=== PATIENT | female | born 1975 | race Hispanic/Latino ===

== ENCOUNTER 2022-09-30 08:39 | Outpatient (CLI) | payer OTHER, SELFPAY ==
--- NOTE | ~2022-09-30 | MM_ITS ---
EXAMINATION: MM screening andres BI w raquel HISTORY: Screening TECHNIQUE: Craniocaudal and mediolateral oblique 3-D tomosynthesis images were obtained and synthetic 2-D images were generated. CAD analysis was submitted and interpreted. COMPARISON: 10/26/2017 BREAST PARENCHYMAL COMPOSITION: The breasts are extremely dense, which lowers the sensitivity of mamm ography. FINDINGS: There is no evidence of suspicious mass, calcification, or architectural distortion to sugg est malignancy in either breast. There has been no suspicious interval change. IMPRESSION: 1. No mammographic evidence of malignancy. 2. Recommend routine screening mammography in one year. BI-RADS Category 1: Negative Reviewed, dictated and finalized at location A. 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
== END 2022-09-30 08:40 | disposition home or self-care (01) ==
LOC: ANHIMG 08:40
PROVIDERS: Visit Provider Registered Nurse
DX: Z12.31 Encounter for screening mammogram for malignant neoplasm of breast (principal)
CPT/HCPCS: 77063; 77067

== ENCOUNTER 2023-01-31 12:13 | Emergency (ER) | payer OTHER, SELFPAY ==
[2023-01-31 12:23] VITALS: BP 139/83; PULSE 80; RESP 14; TEMP 36.3; O2SAT 100
[2023-01-31 12:24] VITALS: BP 139/83; PULSE 80; RESP 14; TEMP 36.3; O2SAT 100
--- NOTE | 2023-01-31 12:32 | ED.ABDPAIN ---
HPI - Abdominal Pain General Chief Complaint: Abdominal Pain Stated Complaint: Constipation Time Seen by Provider: 01/31/23 12:27 Source: patient Mode of arrival: ambulatory Limitations: no limitations History of Present Illness HPI narrative: patient is a 47-year-old female that presents with constipation for 4 days. States she is trying to take team with no relief. Reports that her normal bowel movements are every other day. Denies any changes in diet, nausea, vomiting. Related Data Home Medications Medication Instructions Recorded Confirmed hydrochlorothiazide 12.5 mg tablet mg 01/31/23 lisinopril 5 mg tablet mg 01/31/23 Allergies Allergy/AdvReac Type Severity Reaction Status Date / Time No Known Allergies Allergy Verified 01/31/23 12:23 Review of Systems Review of Systems: All systems reviewed & are unremarkable except as noted in HPI and below Constitutional: Constitutional: Denies body ache(s), Denies fever(s), Denies headache(s), Denies malaise and Denies weakness Eyes: Eyes: Denies loss of vision ENT: Denies otalgia, Denies headache(s), Denies nasal discharge, Denies sinus pain and Denies sore throat Cardiovascular: Cardiovascular: Denies chest pain, Denies irregular heart rhythm and Denies dyspnea Respiratory: Respiratory: Denies dyspnea Gastrointestinal: Gastrointestinal: Denies abdominal pain, Denies melena, Denies hematochezia, Reports constipation, Denies diarrhea, Denies nausea and Denies vomiting Musculoskeletal: Musculoskeletal: Denies back pain, Denies myalgias and Denies arthralgias Integumentary/Breasts: Skin/Breast: Denies pruritus and Denies rash Neurologic: Denies headache(s), Denies loss of vision and Denies weakness Psychiatric: Psychiatric: Reports no additional psychiatric complaints PMFSH Comments At time of signature, agree with nursing past medical, surgical, social and family history. There is no relevant family history pertinent to the presenting complaint. Exam Const: General: cooperative, healthy appearing, comfortable, no acute distress and well nourished Nutritional Appearance: well nourished Orientation/consciousness: patient oriented x3 Limitations: no limitations HENMT: Head: normal to inspection, normocephalic and atraumatic Ears: external ears normal Face/Nose/Sinus: Normal external nose present, normal facial exam and face symmetric Face and sinus: normal facial exam and face symmetric Mouth: Yes lip normal Eyes: General: appearance normal, both eyes and all related structures Alignment and Position: alignment normal and position normal Periorbital: periorbital findings normal Eyelids: eyelids normal Pupils: Equal, round and reactive pupils present EOM: EOMs intact bilaterally Neck: Neck: normal visual inspection and full ROM Chest: Chest palpation & inspection: normal inspection of the chest Resp: Effort & Inspection: normal respiratory effort and able to speak in complete sentences Auscultation: clear to auscultation bilaterally Cardio: Rate: regular rate Rhythm: regular rhythm Heart sounds: S1 normal heart sound present and S2 normal heart sound present GI: Inspection: normal to inspection GI Palp: No abdominal tenderness, Yes Soft to palpation, No Guarding due to palpation present (GI) and No Rebound tenderness present Auscultation: Hyperactive bowel sounds present Skin: General skin exam: normal color and no rashes or lesions noted Neuro: General: patient oriented x3 and moves all extremities Cranial nerves: Yes Equal, round and reactive pupils present Speech: normal speech Gait exam (Neuro): Normal gait present Extrem: General: normal to inspection, full ROM and no edema Psych: Appearance: grossly normal and well kempt Mental Status: mental status grossly normal Speech and movement: Normal speech and movement present Affect: normal affect Attitude: cooperative Thought process: Normal thought process present Course Course Miley
== END 2023-01-31 12:44 | disposition home or self-care (01) ==
PROVIDERS: Emergency Provider Nurse Practitioner Family; PCP Registered Nurse
DX: K59.00 Constipation, unspecified (principal)
CPT/HCPCS: 99211; G0463

== ENCOUNTER 2024-08-08 08:26 | Outpatient (CLI) | payer OTHER, SELFPAY ==
--- NOTE | ~2024-08-08 | MM_ITS ---
EXAMINATION: MM screening andres BI w raquel HISTORY: Screening TECHNIQUE: Craniocaudal and mediolateral oblique 3-D tomosynthesis images were obtained and synthetic 2-D images were generated. CAD analysis was submitted and interpreted. COMPARISON: Comparison to multiple prior studies sequentially, with oldest reviewed study dated 10/16. BREAST PARENCHYMAL COMPOSITION: Dense: The breasts are extremely dense, which lowers the sensitivity of mammography. FINDINGS: There is no evidence of suspicious mass, calcification, or architectural distortion to sugg est malignancy in either breast. There has been no suspicious interval change. IMPRESSION: 1. No mammographic evidence of malignancy. 2. Recommend routine screening mammography in one year. BI-RADS Category 1: Negative Reviewed, dictated and finalized at location B.
== END 2024-08-08 08:27 | disposition home or self-care (01) ==
LOC: ANHIMG 08:28
PROVIDERS: PCP Registered Nurse; Visit Provider Registered Nurse
DX: Z12.31 Encounter for screening mammogram for malignant neoplasm of breast (principal)
CPT/HCPCS: 77063; 77067

== ENCOUNTER 2024-09-23 16:44 | Emergency (ER) | payer OTHER, SELFPAY ==
--- NOTE | ~2024-09-23 | XR_ITS ---
Exam: Abdomen 2V HISTORY: ABD distension COMPARISON: None. TECHNIQUE: Supine images of the abdomen and pelvis. FINDINGS: Significant fecal stasis throughout the colon. No air is identified within the rectum. IMPRESSION: Significant fecal stasis without air in the rectum, as detailed above. Cross-sectional imaging (IV contrast enhanced - no PO, CT examination of the abdomen and pelvis) is recommended for further evaluation. Reviewed, dictated and finalized at location A. 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 Cross-sectional imaging (IV contrast enhanced - no PO, CT examination of the a bdomen and pelvis) is recommended for further evaluation.
--- NOTE | 2024-09-23 16:54 | ED.ABDPAIN ---
HPI - Abdominal Pain General Chief Complaint: Abdominal Pain Stated Complaint: Abdominal Pain Time Seen by Provider: 09/23/24 16:55 Source: patient Mode of arrival: ambulatory Limitations: no limitations History of Present Illness HPI narrative: 49-year-old female presents with complaint of constipation and abdominal distention for 1 week. Denies abdominal pain. Has tried MiraLax 3 days in a row with no relief of constipation. No other complaints today. All systems reviewed and negative except as noted above. Related Data Home Medications Medication Instructions Recorded Confirmed hydrochlorothiazide 12.5 mg tablet 12.5 mg PO DAILY 01/31/23 09/23/24 lisinopril 5 mg tablet 5 mg PO DAILY 01/31/23 09/23/24 Allergies Allergy/AdvReac Type Severity Reaction Status Date / Time No Known Allergies Allergy Verified 09/23/24 16:54 Review of Systems Review of Systems: CONSTITUTIONAL: Denies fever, chills, or sweats. EYES: Denies visual changes, redness, or discharge. ENT: Denies rhinorrhea, congestion, sore throat, or otalgia. CARDIOVASCULAR: Denies chest pain, palpitations, or edema. RESPIRATORY: Denies cough or dyspnea. GASTROINTESTINAL: Reports abdominal pain. Denies nausea, vomiting, or diarrhea. GENITOURINARY: Denies dysuria or hematuria. SKIN: Denies rash or itching. MUSCULOSKELETAL: Denies back pain, joint pain, or myalgia. NEUROLOGIC: Denies headache, numbness, or weakness. PSYCHIATRIC: Denies anxiety or depression. All other systems reviewed are negative, except as documented in HPI. PMFSH Comments At time of signature, agree with nursing past medical, surgical, social and family history. There is no relevant family history pertinent to the presenting complaint. Exam Narrative: GENERAL: This is a well-nourished, well-developed patient, in no apparent distress. HEAD: normocephalic, atraumatic. EYES: PERRL. Sclera clear/white. Vision is grossly intact. EARS: External ears normal NOSE: External nose normal NECK: Neck supple, non-tender without lymphadenopathy, masses or thyromegaly. CARDIOVASCULAR: Regular rate and rhythm without murmurs, gallops, or rubs. RESPIRATORY: Clear to auscultation. Breath sounds equal bilaterally. No wheezes, rales, or rhonchi. GASTROINTESTINAL: Abdomen soft, non-tender, nondistended. Bowel sounds are active. No hepato-splenomegaly, or palpable masses. No guarding. SKIN: warm, Dry, intact with no suspicious lesions or rash, good texture and turgor. NEURO: awake, alert, and oriented to person, place and time. There were no obvious focal neurologic abnormalities. EXTREMITIES: No joint tenderness, effusion, or edema noted. Course Course Level of Care: Express Care Visit Vital Signs Vital signs: reviewed Transfer Transfered to: [place] Transportation: Other ( private car with her son) Transfer rationale: constipation for 1 week. KUB x-ray significant fecal stasis, recommend CT scan. Accepting physician: MD Arthur Hinojosa MDM - Abdominal Pain MDM Narrative Medical decision making narrative: Transferring patient to ER for CT scan of abdomen. KUB shows significant fecal stasis, recommend CT scan. Patient is aware of diagnosis, understands and agrees to treatment plan. Anticipatory guidance given. Patient agrees to follow-up as directed and is aware of reasons to seek care at the emergency department. Portions of this record may have been created with voice recognition software Differential Diagnosis Differential diagnosis: Likely abdominal pain, constipation and small bowel obstruction Imaging Data My impression: agree with radiologist Radiologist's impression: Exam: Abdomen 2V HISTORY: ABD distension COMPARISON: None. TECHNIQUE: Supine images of the abdomen and pelvis. FINDINGS: Significant fecal stasis throughout the colon. No air is identified within the rectum. IMPRESSION: Significant fecal stasis without air in the rectum, as detailed above. Cross-sectional imaging (IV contrast enhanced - no PO, CT examination of the abdomen and pelvis) is recommended for further evaluation. Discharge Plan Discharge Clinical Impression: Constipation Patient Disposition: Acute Care Hospital Condition: Stable Prescriptions: No Action lisinopril 5 mg tablet 5 mg PO DAILY hydrochlorothiazide 12.5 mg tablet 12.5 mg PO DAILY Follow-up/Referrals: Diego,IBIS Fair [Primary Care Provider] - Time of Disposition: 17:27
[2024-09-23 16:56] VITALS: BP 145/77; PULSE 83; RESP 20; TEMP 36.9; O2SAT 100
== END 2024-09-23 17:30 | disposition short-term general hospital (02) ==
PROVIDERS: Emergency Provider Nurse Practitioner Family; PCP Registered Nurse
DX: K59.00 Constipation, unspecified (principal); I10 Essential (primary) hypertension
CPT/HCPCS: 74018; 99212; G0463

== ENCOUNTER 2024-09-23 17:47 | Emergency (ER) | payer OTHER, SELFPAY ==
--- NOTE | ~2024-09-23 | CT_ITS ---
EXAMINATION: CT abdomen pelvis w con DATE: 09/23/2024 21:55 INDICATION: Abdominal pain. TECHNIQUE: Computed tomography (CT) of the abdomen and pelvis was performed with 100 mL Omnipaque 350 intravenous contrast. Automated exposure control and iterative reconstruction technique were employe d. The dose-length product was 388.49 mGy-cm. COMPARISON: None. FINDINGS: The visualized portions of lung bases demonstrate mild atelectasis. No pleural effusion. Th e heart size is normal. No pericardial effusion. The liver, gallbladder, spleen, pancreas, adrenal gl ands, and kidneys are normal. There are no dilated loops of bowel. The appendix is normal. There are no pathologically enlarged lymph nodes. There is no free intraperitoneal fluid. There is a 2.8 cm sub serosal fibroid. There is a 4.1 cm cyst in right ovary. There is mild thoracic and lumbar spondylosis . IMPRESSION: 1. 4.1 cm cyst in right ovary, likely a follicular cyst. 2. Uterine fibroid. Reviewed, dictated and finalized at location A. 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
[2024-09-23 17:51] VITALS: BP 175/91; PULSE 85; RESP 16; TEMP 36.3; O2SAT 100
--- NOTE | 2024-09-23 20:54 | ED.ABDPAIN ---
HPI - Abdominal Pain General Chief Complaint: Abdominal Pain Stated Complaint: abd distension Time Seen by Provider: 09/23/24 20:33 Source: patient Mode of arrival: ambulatory Limitations: language barrier History of Present Illness HPI narrative: This is a 49-year-old female, with history of hypertension, presents to the emergency department from urgent care complaining of constipation. Patient states her last bowel movement was in the past week. She states she has not been able to pass gas today. She denies significant abdominal pain. She states she was seen in urgent care with a KUB done and was referred here for CT of the abdomen. She has no other complaints at this time. Related Data Home Medications Medication Instructions Recorded Confirmed hydrochlorothiazide 12.5 mg tablet 12.5 mg PO DAILY 01/31/23 09/23/24 lisinopril 5 mg tablet 5 mg PO DAILY 01/31/23 09/23/24 Allergies Allergy/AdvReac Type Severity Reaction Status Date / Time No Known Allergies Allergy Verified 09/23/24 16:54 Review of Systems Review of Systems: All systems reviewed & are unremarkable except as noted in HPI and below PMFSH Past Medical History Medical History Hypertension Surgical History Surgical History No significant past surgical history Social History Social History Smoking status: Never smoker Alcohol intake: never Substance use: never Exam Narrative: GENERAL: Well-developed, well-nourished, and in no acute distress. HEAD: Normocephalic, atraumatic. EYES: PERRLA and EOMI. CHEST: Clear to auscultation. No respiratory distress. No wheezes rales or rhonchi HEART: Regular rate and rhythm. No murmur heard. Normal peripheral pulses. ABDOMEN: Soft, nontender, nondistended, normal active bowel sounds. EXTREMITIES: Normal range of motion. No edema. SKIN: Warm, dry, no rash. NEURO: Alert and oriented x3. No focal deficit. Moving all 4 limbs spontaneously PSYCH: Normal mood and affect. Course Course Emergency Course: 00:10 - CBC demonstrates chronic appearing microcytic anemia with hemoglobin of 9.3 but is otherwise unremarkable. Chemistries unremarkable. STAT Rad interpretation of CT abdomen pelvis demonstrates no acute findings. Simple right adnexal cyst, probably a dominant follicle. The patient was offered laxatives and enema here. She requested to be discharged and will attempt medications at home. Will discharge. I discussed the findings and recommendations with The patient. Discussed return and emergency precautions including signs/symptoms of acute abdomen and intractable vomiting. The patient voiced understanding and agreement with the plan. All questions answered to her satisfaction. Vital Signs Vital signs: Vital Signs Temperature 97.4 F L 09/23/24 17:51 Pulse Rate 85 09/23/24 17:51 Respiratory Rate 16 09/23/24 17:51 Blood Pressure 175/91 H 09/23/24 17:51 Pulse Oximetry 100 09/23/24 17:51 Oxygen Delivery Room Air 09/23/24 17:51 Temperature 98.7 F 09/23/24 23:31 Pulse Rate 71 09/23/24 23:31 Respiratory Rate 17 09/23/24 23:31 Blood Pressure 141/99 H 09/23/24 23:31 Pulse Oximetry 100 09/23/24 23:31 Oxygen Delivery Room Air 09/23/24 17:51 MDM - Abdominal Pain MDM Narrative Medical decision making narrative: Plan: Labs, imaging, reassess Differential Diagnosis Differential diagnosis: Likely constipation, diverticulitis, gastroenteritis, small bowel obstruction and other ( large bowel obstruction, metabolic abnormality, other) Lab Data 09/23/24 21:14 09/23/24 21:14 Labs: Lab Results 09/23/24 Range/Units 21:14 WBC 6.6 (4.5-10.0) K/mm3 RBC 4.24 (4.2-5.4) M/mm3 Hgb 9.3 L (12.0-15.0) g/dL Hct 30.5 L (37.0-47.0) % MCV 71.9 L (80-100) fl MCH 21.9 L (26-34) pg MCHC 30.5 L (32-36) g/dl RDW 15.9 H (11.5-14.5) % Plt Count 451 H (150-375) k/mm3 MPV 9.1 (7.4-10.4) fl Immature Gran % (Auto) 0.2 (0-0.5) % Neut % (Auto) 63.6 (45.5-73.1) % Lymph % (Auto) 27.1 (18.3-44.2) % [place] % (Auto) 6.2 (2.6-8.5) % Eos % (Auto) 2.0 (0-4.4) % Baso % (Auto) 0.9 (0.2-1.2) % Lymph # (Auto) 1.78 (0.9-3.2) K/mm3 [place] # (Auto) 0.4 (0.1-0.6) K/mm3 Eos # (Auto) 0.1 (0-0.3) K/mm3 Baso # (Auto) 0.1 (0.0-0.1) K/mm3 Abs Immat Gran (auto) 0.01 (0.00-0.031) K/mm3 Absolute Neuts (auto) 4.2 (1.3-6.7) K/mm3 Absolute Nucleated RBC 0.000 (0.0-0.012) K/mm3 Nucleated RBC % 0.0 (0.0-0.2) % Platelet Estimate Increased (Adequate) Hypochromasia 1+ Anisocytosis 1+ Microcytosis 1+ (NORMAL) Schistocytes None seen Sodium 138 (137-145) mmol/L Potassium 3.6 (3.4-5.0) mmol/L Chloride 106 (98-107) mmol/L Carbon Dioxide 22 (22-30) mmol/L Anion Gap 10 (4-12) mmol/L BUN 11 (7-17) mg/dL Creatinine 0.60 L (0.7-1.0) mg/dL Estim Creat Clear Calc 89 ml/min Estimated GFR > 60 (59 - ) Glucose 95 (65-110) mg/dL Calcium 9.4 (8.4-10.2) mg/dL Total Bilirubin 0.3 (0.2-1.3) mg/dL AST 26 (14-36) U/L ALT 14 (6-35) U/L Alkaline Phosphatase 54 (38-126) U/L Total Protein 9.0 H (6.3-8.2) g/dL Albumin 4.8 (3.5-5.1) g/dL Discharge Plan Discharge Clinical Impression: Constipation Qualifiers: Constipation type: unspecified constipation type Qualified Code(s): K59.00 - Constipation, unspecified Patient Disposition: Home, Self-Care Condition: Stable Instructions: Antibiotic Form, Constipation (ED) Additional Instructions: You were seen in the emergency department. Scan showed constipation but was not concerning for blockage of the bowel. Your labs showed a slightly decreased hemoglobin of 9 with changes consistent with iron deficiency. I recommend following up with your primary care doctor. If you develop Severe abdominal pain, persistent vomiting, or if you have other emergent concerns for life, limb, or eyesight, return to the emergency department. Patient Language: [place] Prescriptions: No Action lisinopril 5 mg tablet 5 mg PO DAILY hydrochlorothiazide 12.5 mg tablet 12.5 mg PO DAILY Follow-up/Referrals: Diego,IBIS Fair [Primary Care Provider] - 2 Weeks Time of Disposition: 00:45
[2024-09-23 21:15] VITALS: BP 160/86; PULSE 82; RESP 17; O2SAT 100
[2024-09-23 21:20] LABS: Basophils Absolute Auto 0.1 K/mm3 (0.0-0.1); Basophils Percent Auto 0.9 % (0.2-1.2); Eosinophils Absolute Auto 0.1 K/mm3 (0-0.3); Hematocrit 30.5 % (37.0-47.0); Hemoglobin 9.3 g/dL (12.0-15.0); Immature Granulocyte Absolute 0.01 K/mm3 (0.00-0.031); Immature Granulocyte Percent A 0.2 % (0-0.5); Lymphocytes Absolute Auto 1.78 K/mm3 (0.9-3.2); Lymphocytes Percent Auto 27.1 % (18.3-44.2); Mean Corpuscular HGB Conc 30.5 g/dl (32-36); Mean Corpuscular Hemoglobin 21.9 pg (26-34); Mean Corpuscular Volume 71.9 fl (80-100); Mean Platelet Volume 9.1 fl (7.4-10.4); Monocytes Absolute Auto 0.4 K/mm3 (0.1-0.6); Monocytes Percent Auto 6.2 % (2.6-8.5); Neutrophils Absolute Auto 4.2 K/mm3 (1.3-6.7); Neutrophils Percent Auto 63.6 % (45.5-73.1); Platelet Count Result 451 k/mm3 (150-375); Red Blood Count 4.24 M/mm3 (4.2-5.4); Red Cell Distribution Width 15.9 % (11.5-14.5); White Blood Count 6.6 K/mm3 (4.5-10.0)
[2024-09-23 21:30] LABS: Alanine Aminotransferase 14 U/L (6-35); Albumin Level 4.8 g/dL (3.5-5.1); Alkaline Phosphatase 54 U/L (38-126); Anion Gap 10 mmol/L (4-12); Aspartate Amino Transferase 26 U/L (14-36); Bilirubin,Total 0.3 mg/dL (0.2-1.3); Blood Urea Nitrogen 11 mg/dL (7-17); Calcium 9.4 mg/dL (8.4-10.2); Carbon Dioxide 22 mmol/L (22-30); Chloride 106 mmol/L (98-107); Estimated CRCL calculation 89 ml/min; Estimated Glomerular Filt Rate > 60; Glucose 95 mg/dL (65-110); Potassium 3.6 mmol/L (3.4-5.0); Sodium 138 mmol/L (137-145)
[2024-09-23 21:47] LABS: Anisocytosis 1+; Hypochromasia 1+; Microcytosis 1+ (NORMAL); Platelet Estimate Increased (Adequate)
[2024-09-23 21:48] LABS: Schistocytes None Seen
[2024-09-23 23:31] VITALS: BP 141/99; PULSE 71; RESP 17; TEMP 37.1; O2SAT 100
--- NOTE | 2024-09-24 00:10 | PC.NURSE ---
Patient informed of order for enema, patient educated on process and use of an enema. Patient refused enema, states can I just taken something at home to help me go? This RN informed ERP of patients request and refusal of enema.
== END 2024-09-24 00:54 | disposition home or self-care (01) ==
PROVIDERS: Emergency Provider Preventive Medicine Aerospace Medicine; PCP Registered Nurse
DX: K59.00 Constipation, unspecified (principal); I10 Essential (primary) hypertension
CPT/HCPCS: 36415; 74177; 80053; 85025; 99284; Q9967

== ENCOUNTER 2025-06-15 09:17 | Outpatient (CLI) | payer OTHER, SELFPAY ==
--- NOTE | ~2025-06-15 | US_ITS ---
EXAMINATION: US pelvic complete w TV INDICATION: Right ovarian cyst Comparison:CT dated 09/23/2024 TECHNIQUE: Multiple transabdominal and endovaginal sonographic images of the pelvis performed. FINDINGS: The uterus measures 10.2 x 4.9 x 5.3 cm. There are multiple nabothian cysts. There is a ped unculated fibroid at the fundus measuring 2.7 cm. The endometrial complex measures 1.7 cm. In the end ometrium there is a small echogenic mass measuring 1.2 x 1.1 x 1 cm with internal vascularity. The right ovary measures 5.8 x 5.2 x 5.6 cm and the left ovary measures 4.2 x 2.2 x 2.7 cm.. There a re small follicles in each ovary. In the right ovary there is a 4.9 cm simple cyst. Normal doppler si gnal in both ovaries. There is no free fluid in the pelvis. There are no abnormal masses seen on either side. IMPRESSION: 1. Echogenic vascular endometrial mass measuring 1.2 cm, likely represents endometrial polyp. Other c onsiderations include submucosal fibroid and endometrial carcinoma although less likely in premen[place] women. Consider follow-up sonohysterography or hysteroscopy with endometrial sampling. 2: Simple cyst of the right ovary measuring 4.9 cm. In a premenopausal female this most likely repre sents a physiologic cyst and no follow-up required. Reviewed, dictated and finalized at location A. IMPRESSION: 1. Echogenic vascular endometrial mass measuring 1.2 cm, likely represents endo metrial polyp. Other considerations include submucosal fibroid and endometrial carcinoma although less likely in premenopausal women. Consider follow-up sonoh ysterography or hysteroscopy with endometrial sampling. 2: Simple cyst of the right ovary measuring 4.9 cm. In a premenopausal female this most likely represents a physiologic cyst and no follow-up required.
== END 2025-06-15 09:18 | disposition home or self-care (01) ==
PROVIDERS: PCP Registered Nurse; Visit Provider Registered Nurse
DX: N83.201 Unspecified ovarian cyst, right side (principal)
CPT/HCPCS: 76830; 76856